=== PATIENT | female | born 1985 | race Caucasian/White ===

== ENCOUNTER 2017-01-12 19:25 | Emergency (ER) | payer SELFPAY ==
[~2017-01-12] VITALS: Ht 157.5 cm; Wt 65.0 kg
[~2017-01-12 19:25] MED LIST: PRENCAP10 PO
[2017-01-12 19:28] VITALS: BP 130/85; PULSE 74; RESP 16; TEMP 98.9; O2SAT 97
--- NOTE | 2017-01-12 21:15 | PD ---
HPI Chief Complaint: Medical Clearance Time Seen by Provider: 20:44 Travel History International Travel<30 days: No Contact w/Intl Traveler<30days: No Traveled to known affect area: No History of Present Illness HPI Patient's a 31-year-old female presenting to emergency department for detox. Patient states that she injects heroin and Dilaudid 5-10 times a day. She states she's been injecting 4 mg Dilaudid tablets and approximately $100 of heroin a day. She has no physical complaints at this time. She last used a few hours prior to arrival, she states she went to [facility] who told her to come to emergency department and be placed. [facility] Past Medical History Asthma: Yes Blood Disorders: No Anxiety: Yes Depression: Yes Diminished Hearing: No Musculoskeletal: Yes (CHRONIC NECK AND BACK) Immunizations Current: Yes ?: Not : 6 Para: 2 Miscarriage: 1 : 1 Ovarian Cysts: Yes ( SHOWN ON MRI 01/2008 SIZE OF GOLFBALL.) Past Surgical History Section: Yes Other Surgery: Yes (C SECT) Social History Alcohol Use: Yes (OCC) Tobacco Use: Yes (1PPD) Substance Use: Yes (MARIJUANA, COCCAINE, HEROIN, AND IV DILAUDID DAILY) Allergies-Medications (Allergen,Severity, Reaction): Coded Allergies: albuterol (Unverified Adverse Reaction, Severe, "MAKES ME SHAKEY", 01/12/17 ) erythromycin base (Unverified Adverse Reaction, Severe, "SICK TO MY STOMACH", 01/12/17) Reported Meds & Prescriptions Reported Meds & Active Scripts Active Multi +Dha (Ferrous Fumarate/Vit C/Folic Acid) + Cap 1 Cap PO DAILY 30 Days Review of Systems Except as stated in HPI: all other systems reviewed are Neg Psychiatric: Positive: Suicidal Ideations, Substance Abuse Physical Exam Narrative GENERAL: Well-developed, well kept, well-nourished alert female. Resting comfortably in no acute distress. SKIN: Warm and dry. HEAD: Atraumatic. Normocephalic. EYES: Pupils equal and round. No scleral icterus. No injection or drainage. ENT: No nasal bleeding or discharge. Mucous membranes pink and moist. NECK: Trachea midline. No JVD. CARDIOVASCULAR: Regular rate and rhythm. RESPIRATORY: No accessory muscle use. Clear to auscultation. Breath sounds equal bilaterally. GASTROINTESTINAL: Abdomen soft, non-tender, nondistended. Hepatic and splenic margins not palpable. MUSCULOSKELETAL: Extremities without clubbing, cyanosis, or edema. No obvious deformities. NEUROLOGICAL: Awake and alert. No obvious cranial nerve deficits. Motor grossly within normal limits. Five out of 5 muscle strength in the arms and legs. Normal speech. PSYCHIATRIC: Appropriate mood and affect; insight and judgment normal. Data Data Last Documented VS Vital Signs Date Time Temp Pulse Resp B/P (MAP) Pulse Ox O2 Delivery O2 Flow Rate FiO2 01/12/17 19:28 98.9 74 16 130/85 (100) 97 Room Air Orders Orders Psych Screen (01/12/17 20:57) [facility] Medical Decision Making Medical Screen Exam Complete: Yes Emergency Medical Condition: Yes Medical Record Reviewed: Yes Interpretation(s) Vital Signs Date Time Temp Pulse Resp B/P (MAP) Pulse Ox O2 Delivery O2 Flow Rate FiO2 01/12/17 19:28 98.9 74 16 130/85 (100) 97 Room Air Differential Diagnosis Substance abuse versus mood disorder versus depression versus suicidal ideation versus other Narrative Course Patient presented to be admitted for detox to heroin and IV Dilaudid use. Her vital signs are stable, she does not appear to be having any withdrawal symptoms at this time. Patient was initially observed sleeping. Patient was advised that we do not offer detox services here at [place]. Patient then stated that if she were to go home she would kill herself, she states that she does not want to use drugs anymore. She initially denied any suicidal or homicidal ideations until she was informed that she would have to follow up at [facility] in the morning on her own. Psych screening ordered. Patient was seen and evaluated by MARIANA Newman psych screener. After psychiatric screen, patient was felt to not be suicidal and is appropriate for discharge. She was given a packet of resources for which to follow-up with. Diagnosis Primary Impression: Substance abuse Referrals: [facility] 1 day Patient Instructions: General Instructions, Narcotic Abuse (ED) Additional Instructions: Present to [facility] before 9 AM tomorrow for treatment Avoid illicit drug use Return to emergency department for any new or worsening symptoms Med/Other Pt SpecificInfo: No Change to Meds Disposition: 01 DISCHARGE HOME Condition: Stable Cara Amaral [employer] Jan 12, 2017 21:15
== END 2017-01-12 22:05 | disposition home or self-care (01) ==
LOC: NEPD 19:25
DX: F11.10 Opioid abuse, uncomplicated (principal)
CPT/HCPCS: 99283

== ENCOUNTER 2017-02-09 11:07 | Emergency (ER) | payer SELFPAY ==
[~2017-02-09] VITALS: Ht 157.5 cm; Wt 63.5 kg
[2017-02-09 11:10] VITALS: BP 134/94; PULSE 117; RESP 16; TEMP 99.1; O2SAT 99
--- NOTE | 2017-02-09 11:43 | PD ---
HPI Chief Complaint: Back/ Neck Pain or Injury Time Seen by Provider: 11:23 Travel History International Travel<30 days: No Contact w/Intl Traveler<30days: No Traveled to known affect area: No History of Present Illness HPI Patient is a 31-year-old female with history of IV drug abuse, and to the emergency with complaints of back pain, bilateral hip, bilateral knee pain. She reports that she has been having these symptoms for the past few weeks, reports that she has had increased difficulty with ambulation. Reports that she is an IV drug abuser, she does use IV heroin, Dilaudid and cocaine. Patient last used IVD a few hours prior to presentation to the ER. Patient reports no fever/chills. Denies chest pain/sob. Denies abdominal pain, denies nausea or vomiting. Denies incontinence of urine or stool. PFSH Past Medical History Hx Anticoagulant Therapy: No Asthma: Yes Blood Disorders: No Anxiety: Yes Depression: Yes Cardiovascular Problems: No Chemotherapy: No Cerebrovascular Accident: No Diabetes: No Diminished Hearing: No Musculoskeletal: Yes (CHRONIC NECK AND BACK) Respiratory: No Immunizations Current: Yes ?: Unknown LMP: no period for 3-4 months just did a test (-) : 6 Para: 2 Miscarriage: 1 : 1 Ovarian Cysts: Yes ( SHOWN ON MRI 01/2008 SIZE OF GOLFBALL.) Past Surgical History Section: Yes Hysterectomy: No Other Surgery: Yes (C SECT) Social History Alcohol Use: Yes (OCC) Tobacco Use: Yes (1PPD) Substance Use: Yes Allergies-Medications (Allergen,Severity, Reaction): Coded Allergies: albuterol (Unverified Adverse Reaction, Severe, "MAKES ME SHAKEY", 01/12/17 ) erythromycin base (Unverified Adverse Reaction, Severe, "SICK TO MY STOMACH", 01/12/17) Reported Meds & Prescriptions Reported Meds & Active Scripts Active Multi +Dha (Ferrous Fumarate/Vit C/Folic Acid) + Cap 1 Cap PO DAILY 30 Days Review of Systems General / Constitutional: No: Fever Eyes: No: Visual changes HENT: No: Headaches Cardiovascular: No: Chest Pain or Discomfort Respiratory: No: Shortness of Breath Gastrointestinal: No: Abdominal Pain Genitourinary: No: Dysuria Musculoskeletal: Positive: Pain (back pain, b/l knee pain) Skin: No Rash Neurologic: No: Weakness Psychiatric: No: Depression Endocrine: No: Polydipsia Hematologic/Lymphatic: No: Easy Bruising Physical Exam Narrative GENERAL: mild distress SKIN: Focused skin assessment warm/dry. HEAD: Atraumatic. Normocephalic. EYES: Pupils equal and round. No scleral icterus. No injection or drainage. ENT: No nasal bleeding or discharge. Mucous membranes pink and moist. NECK: Trachea midline. No JVD. CARDIOVASCULAR: Tachycardia. No murmur appreciated. RESPIRATORY: No accessory muscle use. Clear to auscultation. Breath sounds equal bilaterally. GASTROINTESTINAL: Abdomen soft, non-tender, nondistended. Hepatic and splenic margins not palpable. Patient with no saddle anesthesia MUSCULOSKELETAL: No obvious deformities. No clubbing. No cyanosis. No edema. Patient with lower thoracic, upper lumbar midline tenderness NEUROLOGICAL: Awake and alert. No obvious cranial nerve deficits. Motor grossly within normal limits. Normal speech. PSYCHIATRIC: Anxious mood and affect; insight and judgment normal. Data Data Last Documented VS Vital Signs Date Time Temp Pulse Resp B/P (MAP) Pulse Ox O2 Delivery O2 Flow Rate FiO2 02/09/17 11:10 99.1 117 16 134/94 (107) 99 Orders Orders Complete Blood Count With Diff (02/09/17 11:33) Comprehensive Metabolic Panel (02/09/17 11:33) Urinalysis - C+S If Indicated (02/09/17 11:33) Drug Screen, Random Urine (02/09/17 11:33) Prothrombin Time / Inr (Pt) (02/09/17 11:33) Act Partial Throm Time (Ptt) (02/09/17 11:33) Blood Culture (02/09/17 11:33) Sodium Chlor 0.9% 1000 Ml Inj (Ns 1000 M (02/09/17 11:45) Potassium Chloride (Kcl) (02/09/17 13:30) Mri L Spine W/O Contrast (02/09/17 ) Mri T Spine W/O Contrast (02/09/17 ) Labs Laboratory Tests Test 02/09/17 11:40 02/09/17 11:50 Urine Color DARK-YELLOW Urine Turbidity HAZY Urine pH 6.0 Urine Specific Gary 1.032 Urine Protein 100 mg/dL Urine Glucose (UA) TRACE mg/dL Urine Ketones TRACE mg/dL Urine Occult Blood NEG Urine Nitrite NEG Urine Bilirubin NEG Urine Urobilinogen 2.0 MG/DL Urine Leukocyte Esterase NEG Urine RBC 2 /hpf Urine WBC 4 /hpf Urine Squamous Epithelial Cells 2 /hpf Urine Calcium Oxalate Crystals RARE /hpf Urine Hyaline Casts 43 /lpf Urine Mucus MANY /lpf Microscopic Urinalysis Comment CULT NOT INDICATED Urine Opiates Screen POS Urine Barbiturates Screen NEG Urine Amphetamines Screen NEG Urine Benzodiazepines Screen NEG Urine Cocaine Screen POS Urine Cannabinoids Screen POS White Blood Count 12.0 TH/MM3 Red Blood Count 4.67 MIL/MM3 Hemoglobin 13.6 GM/DL Hematocrit 40.7 % Mean Corpuscular Volume 87.2 FL Mean Corpuscular Hemoglobin 29.2 PG Mean Corpuscular Hemoglobin Concent 33.5 % Red Cell Distribution Width 13.7 % Platelet Count 218 TH/MM3 Mean Platelet Volume 8.6 FL Neutrophils (%) (Auto) 96.6 % Lymphocytes (%) (Auto) 2.6 % Monocytes (%) (Auto) 0.6 % Eosinophils (%) (Auto) 0.1 % Basophils (%) (Auto) 0.1 % Neutrophils # (Auto) 11.6 TH/MM3 Lymphocytes # (Auto) 0.3 TH/MM3 Monocytes # (Auto) 0.1 TH/MM3 Eosinophils # (Auto) 0.0 TH/MM3 Basophils # (Auto) 0.0 TH/MM3 CBC Comment DIFF FINAL Differential Comment Prothrombin Time 12.1 SEC Prothromb Time International Ratio 1.1 RATIO Activated Partial Thromboplast Time 28.2 SEC Blood Urea Nitrogen 14 MG/DL Creatinine 1.38 MG/DL Random Glucose 134 MG/DL Total Protein 7.5 GM/DL Albumin 3.4 GM/DL Calcium Level 9.2 MG/DL Alkaline Phosphatase 73 U/L Aspartate Amino Transf (AST/SGOT) 18 U/L Alanine Aminotransferase (ALT/SGPT) 21 U/L Total Bilirubin 0.4 MG/DL Sodium Level 137 MEQ/L Potassium Level 3.0 MEQ/L Chloride Level 102 MEQ/L Carbon Dioxide Level 20.2 MEQ/L Anion Gap 15 MEQ/L Estimat Glomerular Filtration Rate 44 ML/MIN MDM Medical Decision Making Medical Screen Exam Complete: Yes Emergency Medical Condition: Yes Medical Record Reviewed: Yes Interpretation(s) Vital Signs Date Time Temp Pulse Resp B/P (MAP) Pulse Ox O2 Delivery O2 Flow Rate FiO2 02/09/17 11:10 99.1 117 16 134/94 (107) 99 Differential Diagnosis Abscess, bacteremia, IVDA Narrative Course Patient is a 31-year-old female who presents to emergency room with complaints of back pain, bilateral knee pain, generalized weakness. Patient is an IV drug abuser, last used a few hours prior to coming to the emergency room. During the course of the patients emergency department visit, the patients history, examination, and differential diagnosis were reviewed with the patient. The patient was placed on a patient monitor with oximetry and frequent blood pressure monitoring. The patient had a 20-gauge IV access obtained and blood work sent for analysis. The patient was initially provided IVF The patients laboratory studies were reviewed and remarkable for CBC & BMP Diagram 02/09/17 11:50 Total Protein 7.5, Albumin 3.4, Calcium Level 9.2, Alkaline Phosphatase 73, Aspartate Amino Transf (AST/SGOT) 18, Alanine Aminotransferase (ALT/SGPT) 21, Total Bilirubin 0.4 UDS: pos for opiates, cocaine, canabis Radiology studies were reviewed and remarkable for Last Impressions Thoracic Spine MRI 02/09/17 0000 Signed Impressions: Service Date/Time: Saturday, February 09, 2017 13:44 - CONCLUSION: Normal. Car Mcguire MD Lumbar Spine MRI 02/09/17 0000 Signed Impressions: Service Date/Time: Thursday, February 09, 2017 13:44 - CONCLUSION: No abscess , stenosis or other acute abnormality of the lumbar spine. There is mild lower lumbar facet osteoarthritis noted. Car Mcguire MD Patient with no epidural abscess, patient with back pain was likely musculoskeletal in nature. Patient will follow-up with her primary care doctor and will return to the emergency room as needed. Discussed need for her to stop using IV drugs drugs in general. A copy of her studies were given to her at discharge. Patient will follow up as needed. Diagnosis Primary Impression: Back pain Qualified Codes: M54.9 - Dorsalgia, unspecified Additional Impression: Drug abuse and dependence Patient Instructions: General Instructions Additional Instructions: Please provide patient with a copy of their lab work and studies at discharge* * Please follow up with your primary care doctor in 2-3 days Return to the ER if symptoms worsen or progress Return to the ER as needed Please stop using drugs Med/Other Pt SpecificInfo: Prescription(s) given Scripts Ibuprofen (Ibuprofen) 600 Mg Tab 600 MG PO Q6H Y for Pain/Inflammation, #40 TAB 0 Refills Prov: Ambar Riojas DO 02/09/17 Disposition: 01 DISCHARGE HOME Condition: Stable Ambar Riojas DO Feb 09, 2017 11:43
[2017-02-09] MEDS ORDERED: SODIUM CHLOR 0.9% 1000 ML INJ 1,000 ML IV ONE (11:45)
[2017-02-09 12:19] LABS: AUTOMATED NEUTROPHIL # 11.6 TH/MM3 (1.8-7.7); BASOPHIL % 0.1 % (0.0-2.0); EOSINOPHIL % 0.1 % (0.0-4.0); HEMATOCRIT 40.7 % (35.0-46.0); HEMO FLAGS DIFF FINAL; LYMPH % 2.6 % (9.0-44.0); LYMPHOCYTE # 0.3 TH/MM3 (1.0-4.8); MEAN CELL VOLUME 87.2 FL (80.0-100.0); MEAN CORPUSCULAR HEMOGLOBIN 29.2 PG (27.0-34.0); MEAN CORPUSCULAR HGB CONC 33.5 % (32.0-36.0); MONO % 0.6 % (0.0-8.0); NEUT % 96.6 % (16.0-70.0); PLATELET COUNT 218 TH/MM3 (150-450); RED BLOOD COUNT 4.67 MIL/MM3 (4.00-5.30); RED CELL DISTRIBUTION WIDTH 13.7 % (11.6-17.2)
[2017-02-09 12:30] LABS: APTT (PATIENT) 28.2 SEC (24.3-30.1); INTERNATIONAL NORMALIZED RATIO 1.1 RATIO; PROTHROMBIN TIME - PATIENT 12.1 SEC (9.8-11.6)
[2017-02-09 12:50] LABS: BLOOD, URINE NEG (NEG); CALCIUM OXALATE CRYSTALS,URINE RARE /hpf; COMMENT (UR) CULT NOT INDICATED; CULTURE IF INDICATED CULT NOT INDICATED; GLUCOSE,URINE TRACE mg/dL (NEG); HYALINE CAST, URINE 43 /lpf (RARE); KETONE, URINE TRACE mg/dL (NEG); MUCUS URINE MANY /lpf (OCC); NITRITE,URINE NEG (NEG); SQUAMOUS EPITHELIAL CELL URINE 2 /hpf (0-5); URINE COLOR DARK-YELLOW (YELLW/STRAW)
[2017-02-09 12:53] LABS: ANION GAP 15 MEQ/L (5-15); AST (GOT) 18 U/L (15-37); BICARBONATE 20.2 MEQ/L (21.0-32.0); BLOOD UREA NITROGEN 14 MG/DL (7-18); CHLORIDE 102 MEQ/L (98-107); GLOMERULAR FILTRATION RATE 44 ML/MIN (>89); SODIUM (NA) 137 MEQ/L (136-145)
[2017-02-09 12:55] LABS: ALT (GPT) 21 U/L (10-53)
[2017-02-09 12:57] LABS: ALKALINE PHOSPHATASE 73 U/L (45-117); TOTAL BILIRUBIN ADULT 0.4 MG/DL (0.2-1.0)
[2017-02-09] MEDS ORDERED: POTASSIUM CHLORIDE 10 MEQ CONTROLLED RELEASE TAB PO ONE (13:30)
--- NOTE | 2017-02-09 15:14 | RADRPT ---
EXAM DATE/TIME: 02/09/2017 13:44 [facility] COMPARISON: No previous studies available for comparison. INDICATIONS : Abscess. MEDICAL HISTORY : IVDA. SURGICAL HISTORY : section. ENCOUNTER: Initial ACUITY: 1 day PAIN SCORE: 5/10 LOCATION: [facility] TECHNIQUE: Multiplanar multisequence MRI of the thoracic spine was performed. FINDINGS: VERTEBRA: Normal vertebral body height. Homogeneous marrow signal. ALIGNMENT: Normal. CORD: Normal position and configuration. T1-T2: Normal. T2-T3: The thecal sac has a normal diameter. No evidence of disc bulge or protrusion. T3-T4: The thecal sac has a normal diameter. No evidence of disc bulge or protrusion. T4-T5: The thecal sac has a normal diameter. No evidence of disc bulge or protrusion. T5-T6: The thecal sac has a normal diameter. No evidence of disc bulge or protrusion. T6-T7: The thecal sac has a normal diameter. No evidence of disc bulge or protrusion. T7-T8: The thecal sac has a normal diameter. No evidence of disc bulge or protrusion. T8-T9: The thecal sac has a normal diameter. No evidence of disc bulge or protrusion. T9-T10: The thecal sac has a normal diameter. No evidence of disc bulge or protrusion. T10-T11: The thecal sac has a normal diameter. No evidence of disc bulge or protrusion. T11-T12: The thecal sac has a normal diameter. No evidence of disc bulge or protrusion. T12-L1: The thecal sac has a normal diameter. No evidence of disc bulge or protrusion. CONCLUSION: Normal. Car Mcguire MD on February 09, 2017 at 15:11 Board Certified Radiologist. This report was verified electronically.
--- NOTE | 2017-02-09 16:07 | RADRPT ---
EXAM DATE/TIME: 02/09/2017 13:44 [facility] COMPARISON: No previous studies available for comparison. INDICATIONS : Abscess. MEDICAL HISTORY : IVDA SURGICAL HISTORY : section. ENCOUNTER: Initial ACUITY: 1 day PAIN SCORE: 5/10 LOCATION: [facility] TECHNIQUE: Multiplanar multisequence MRI of the lumbar spine was performed without contrast. FINDINGS: The most caudal appearing lumbar vertebra is numbered as L5. VERTEBRAE: Homogeneous signal. Normal alignment. CONUS: Normal level and configuration. Terminus is at L1. T12-L1: The thecal sac has a normal diameter. No evidence of disc bulge or protrusion. The neural foramina are patent bilaterally. L1-L2: The thecal sac has a normal diameter. No evidence of disc bulge or protrusion. The neural foramina are patent bilaterally. L2-L3: The thecal sac has a normal diameter. No evidence of disc bulge or protrusion. The neural foramina are patent bilaterally. L3-L4: The thecal sac has a normal diameter. No evidence of disc bulge or protrusion. The neural foramina are patent bilaterally. L4-L5: Normal disc. Mild bilateral facet osteoarthritis. No foraminal or spinal stenosis. L5-S1: Normal disc. Mild bilateral facet osteoarthritis. No foraminal or spinal stenosis. CONCLUSION: No abscess, stenosis or other acute abnormality of the lumbar spine. There is mild lower lumbar facet osteoarthritis noted. Car Mcguire MD on February 09, 2017 at 16:03 Board Certified Radiologist. This report was verified electronically.
[2017-02-09] MEDS ORDERED: IBUP-232 PO (16:21)
== END 2017-02-09 17:11 | disposition home or self-care (01) ==
LOC: NEPD 11:07
DX: M54.9 Dorsalgia, unspecified (principal); F19.20 Other psychoactive substance dependence, uncomplicated; M25.561 Pain in right knee; M25.562 Pain in left knee; M25.552 Pain in left hip; M25.551 Pain in right hip; J45.909 Unspecified asthma, uncomplicated; Z72.0 Tobacco use; R53.1 Weakness
CPT/HCPCS: 72146; 72148; 80053; 80307; 81001; 85025; 85610; 85730; 87040; 96360; 96361; 99285; J7030

== ENCOUNTER 2017-03-05 11:16 | Emergency (ER) | payer SELFPAY ==
[~2017-03-05 11:16] MED LIST changes: +IBUP-232 PO
[2017-03-05 11:18] VITALS: BP 127/81; PULSE 94; RESP 16; TEMP 99.4; O2SAT 98
--- NOTE | 2017-03-05 12:09 | PD ---
HPI Chief Complaint: Alcohol/Drug Intoxication Time Seen by Provider: 11:36 Travel History International Travel<30 days: No Contact w/Intl Traveler<30days: No Traveled to known affect area: No History of Present Illness HPI 31-year-old female presents to the emergency room requesting detox from heroin. She last used last night. She also uses crack cocaine and marijuana. States she has been using for 10 years. She relapsed 6 months ago. Patient did not go to [facility] because she is actively withdrawing and was hoping we would treat her symptoms. Symptoms include severe myalgias throughout her body. She denies any other symptoms at this time. No chronic medical conditions or daily medications. She denies suicidal or homicidal ideation. PFSH Past Medical History Hx Anticoagulant Therapy: No Asthma: Yes Blood Disorders: No Anxiety: Yes Depression: Yes Cardiovascular Problems: No Chemotherapy: No Cerebrovascular Accident: No Diabetes: No Diminished Hearing: No Musculoskeletal: Yes (CHRONIC NECK AND BACK) Respiratory: No Immunizations Current: Yes ?: Unknown : 6 Para: 2 Miscarriage: 1 : 1 Ovarian Cysts: Yes ( SHOWN ON MRI 01/2008 SIZE OF GOLFBALL.) Past Surgical History Section: Yes Hysterectomy: No Other Surgery: Yes (C SECT) Social History Alcohol Use: Yes (OCC) Tobacco Use: Yes (1PPD) Substance Use: Yes (HEROIN, DILADID, COCAINE, POT) Allergies-Medications (Allergen,Severity, Reaction): Coded Allergies: albuterol (Unverified Adverse Reaction, Severe, "MAKES ME SHAKEY", ) erythromycin base (Unverified Adverse Reaction, Severe, "SICK TO MY STOMACH", 03/05/17) Reported Meds & Prescriptions Reported Meds & Active Scripts Active No Active Prescriptions or Reported Medications Review of Systems Except as stated in HPI: all other systems reviewed are Neg Physical Exam Narrative GENERAL: Well-nourished, well-developed female in no acute distress. Afebrile. Ambulatory. Vital signs stable. SKIN: Focused skin assessment warm/dry. HEAD: Normocephalic. EYES: No scleral icterus. No injection or drainage. NECK: Supple, trachea midline. No JVD or lymphadenopathy. CARDIOVASCULAR: Regular rate and rhythm without murmurs, gallops, or rubs. RESPIRATORY: Breath sounds equal bilaterally. No accessory muscle use. PSYCHIATRIC: No delusional thought processes. No hallucinations. Falling asleep during examination. Data Data Last Documented VS Vital Signs Date Time Temp Pulse Resp B/P (MAP) Pulse Ox O2 Delivery O2 Flow Rate FiO2 03/05/17 11:18 99.4 94 16 127/81 (96) 98 Room Air Orders Orders Clonidine (Catapres) (03/05/17 12:15) Ibuprofen (Motrin) (03/05/17 12:15) Baclofen (Lioresal) (03/05/17 12:15) MDM Medical Decision Making Medical Screen Exam Complete: Yes Emergency Medical Condition: Yes Medical Record Reviewed: Yes Differential Diagnosis Withdrawal, myalgias, muscle spasm, viral syndrome Narrative Course 31-year-old female presents to the emergency room requesting detox from heroin. Last use last night. Also uses crack cocaine and marijuana. Patient is falling asleep during history and examination. Vital signs stable. Answering questions properly. Denies suicidal homicidal ideations. Patient was given ibuprofen, baclofen, clonidine in the emergency room for pain and muscle spasms. She was given a resource packet of local areas at which to follow-up for detox. She is stable for discharge and outpatient follow-up at this time. Diagnosis Primary Impression: Heroin withdrawal Referrals: [facility] (Out patient) Additional Instructions: Take Tylenol and Motrin for pain. Follow-up with [facility] for detox. Return for emergent or urgent medical conditions. Med/Other Pt SpecificInfo: Prescription(s) given Scripts No Active Prescriptions or Reported Meds Disposition: 01 DISCHARGE HOME Condition: Stable Trish Swanson Mar 05, 2017 12:09
[2017-03-05] MEDS ORDERED: BACLOFEN 10 MG TAB PO ONE (12:15)
[2017-03-05] MEDS ORDERED: cloNIDine HCL 0.1 MG TAB PO ONE (12:15)
[2017-03-05] MEDS ORDERED: IBUPROFEN 600 MG TAB PO ONE (12:15)
[2017-03-05 13:00] VITALS: BP 96/54; PULSE 86; RESP 16; O2SAT 98
== END 2017-03-05 13:59 | disposition home or self-care (01) ==
LOC: NEPD 11:16
DX: F11.23 Opioid dependence with withdrawal (principal)
CPT/HCPCS: 99283